=== PATIENT | female | born 1960 | race Caucasian/White ===

== ENCOUNTER 2020-10-22 19:22 | Emergency (ER) | payer OTHER ==
--- OUTSIDE RECORDS SUMMARY | 2020-10-22 19:26 | XMS REPORT | Continuity of Care Document ---
:1960 Author Organization [facility] t Address [address] [place] [address] Care Team Providers Name Role Phone Pj Carrera Attending Clinician Doctor Unassigned, Name Attending Clinician Unavailable Baldomero NUNEZ Attending Clinician Problems This patient has no known problems. Allergies, Adverse Reactions, Alerts This patient has no known allergies or adverse reactions. Medications This patient has no known medications. Procedures This patient has no known procedures. Encounters Start End Encounter Admission Attending Care Care Encounter Source Date/Time Date/Time Type Type Clinicians Facility Department ID 2020-10-21 2020-10-21 Emergency TOBIAS [place] [id number] 18:02:00 22:42:00 Maria G Montes [id number] [place] [id number] [place] [id number] 2020-10-17 2020-10-17 Orders Doctor GONZALEZ [id number] 00:00:00 00:00:00 Only UnassignedTHELMA [id number] [place] [facility] [id number] 2020-10-04 2020-10-04 Office TOBIAS Alexandre [id number] 10:35:07 11:18:27 Visit Nicky Montes [id number] [place] [id number] [facility] [id number] [facility] [address] Results This patient has no known results.
[2020-10-22] MEDS ORDERED: METOCLOPRAMIDE 10 MG/2mL INJ ONE (22:50)
[2020-10-22] MEDS ORDERED: DIPHENHYDRAMINE 50 MG/ML VIAL ONE (22:50)
[2020-10-22] MEDS ORDERED: NA CHLORIDE 0.9% 1,000 ML ONE (22:50)
[2020-10-22] MEDS ORDERED: dexAMETHasone 10 MG/ML VIAL ONE (22:51)
[2020-10-22 23:11] LABS: Absolute Lymphocytes (CBC) 2.4 K/uL (0.7-4.9); Basophils % 0.5 % (0-1.3); Hematocrit 41.9 % (36.0-45.0); Lymphocytes % 26.5 % (15.3-44.8); RBC Red Blood Cell Count 4.74 M/uL (3.86-4.86)
[2020-10-22 23:36] LABS: Albumin 3.9 g/dL (3.4-5.0); Bilirubin Total 0.9 mg/dL (0.2-1.0); Potassium 3.5 mmol/L (3.5-5.1); Protein, Total 7.4 g/dL (6.4-8.2)
[2020-10-22 23:37] LABS: Urine Blood Negative (Negative); Urine Glucose Negative (Negative); Urine Protein Negative (Negative); Urine Specific Gravity 1.025 (1.005-1.030); Urine pH 5.5 (5.0-7.0)
[2020-10-22] MEDS ORDERED: FENTANYL CITR 100 MCG/2 ML ONE (23:47)
[2020-10-23 00:24] LABS: Calcium Oxalate Crystals- Ur FEW (NONE SEEN); Urine Bacteria >50 /HPF (<20); Urine Mucus 1+ /HPF (NONE SEEN); Urine RBC <5 /HPF (NONE SEEN)
--- NOTE | 2020-10-23 01:05 | EDPHYS ---
Physician Documentation [facility] Name: Vanessa Vazquez Age: 59 yrs Sex: Female : 1960 Arrival Date: 10/22/2020 Time: 19:26 Bed 12 Private MD: DANIEL Physician Osei Hamilton HPI: 10/22 22:19 This 59 yrs old Female presents to ER via Ambulatory with complaints of pm1 Headache > 24hrs Old. 22:19 The patient complains of pain to the forehead and right eye. The patient describes the pm1 headache as throbbing. 22:19 Onset: The symptoms/episode began/occurred 3 day(s) ago. Associated signs and symptoms: pm1 Pertinent negatives: fever, dysuria, abdominal pain, flank pain. Severity of symptoms: in the emergency department the pain is unchanged. Headache History: The patient has had previous headaches and this one is more severe than previous episodes. The symptoms are alleviated by nothing. the symptoms are aggravated by walking. The patient has not experienced similar symptoms in the past. The patient has been recently seen by a physician: [facility] two days ago for the same complaint. No improvement in symptoms from treatment in the ER. Here for reevaluation. Historical: - Allergies: 20:04 PENICILLINS; vg1 20:04 Codeine; vg1 - Home Meds: 20:04 duloxetine oral [Active]; Metformin Oral [Active]; Lisinopril Oral [Active]; Dayvigo vg1 oral [Active]; - PMHx: 20:04 Hypertensive disorder; Diabetes mellitus; vg1 - Immunization history:: Adult Immunizations up to date. - Social history:: Smoking status: Patient denies any tobacco usage or history of. ROS: 22:19 Constitutional: Negative for fever, chills, and weight loss, Eyes: Negative for injury, pm1 pain, redness, and discharge, ENT: Negative for injury, pain, and discharge, Neck: Negative for injury, pain, and swelling, Cardiovascular: Negative for chest pain, palpitations, and edema, Respiratory: Negative for shortness of breath, cough, wheezing, and pleuritic chest pain, Abdomen/GI: Negative for abdominal pain, nausea, vomiting, diarrhea, and constipation, Back: Negative for injury and pain, MS/Extremity: Negative for injury and deformity, Skin: Negative for injury, rash, and discoloration. 22:19 Neuro: Positive for headache, Negative for numbness, tingling. Exam: 22:19 Constitutional: This is a well developed, well nourished patient who is awake, alert, pm1 and in no acute distress. Head/Face: Normocephalic, atraumatic. 22:19 Back: No spinal tenderness. No costovertebral tenderness. Full range of motion. Skin: Warm, dry with normal turgor. Normal color with no rashes, no lesions, and no evidence of cellulitis. MS/ Extremity: Pulses equal, no cyanosis. Neurovascular intact. Full, normal range of motion. 22:19 Eyes: Exam is negative for Periorbital structures: appear normal, Extraocular movements: no acute changes, Conjunctiva: no acute changes, no injection. 22:19 Cardiovascular: Rate: normal, Rhythm: regular, Pulses: no pulse deficits are appreciated. 22:19 Respiratory: Exam negative for acute changes, respiratory distress, shortness of breath, the patient does not display signs of respiratory distress. 22:19 Neuro: Exam negative for acute changes, Orientation: is normal, Mentation: is normal, Motor: is normal, moves all fours. Vital Signs: 20:00 BP 162 / 82; Pulse 93; Resp 16; Temp 97.3; Pulse Ox 96% ; Weight 104.33 kg; Height 5 vg1 ft. 8 in. (172.72 cm); Pain 8/10; 23:38 BP 160 / 72; Pulse 81; Resp 12; Pulse Ox 92% on R/A; dh4 10/23 01:11 BP 141 / 79; Pulse 84; Resp 14 S; Pulse Ox 95% on R/A; Pain 8/10; bb 02:00 BP 149 / 81; Pulse 87; Resp 16 S; Pulse Ox 93% on R/A; Pain 5/10; bb 10/22 20:00 Body Mass Index 34.97 (104.33 kg, 172.72 cm) vg1 MDM: 10/22 21:58 Patient medically screened. [facility] 10/23 01:04 Data reviewed: vital signs. Data interpreted: Pulse oximetry: on room air is 96 %. pm1 Interpretation: normal. Counseling: I had a detailed discussion with the patient and/or guardian regarding: the historical points, exam findings, and any diagnostic results supporting the discharge/admit diagnosis, lab results, radiology results, the need for outpatient follow up, to return to the emergency department if symptoms worsen or persist or if there are any questions or concerns that arise at home. 01:18 ED course: OR SCRUB TECH aware reviewed. pm1 10/22 22:02 Order name: CBC with Diff; Complete Time: 23:18 pm1 10/22 22:02 Order name: CMP; Complete Time: 00:24 pm1 10/22 22:07 Order name: Urine Microscopic Only; Complete Time: 00:29 pm1 10/22 22:08 Order name: CT Head Brain wo Cont pm1 10/22 23:37 Order name: Urine Dipstick-Ancillary; Complete Time: 00:24 EDMS 10/23 00:25 Order name: Urine Culture EDNH 10/22 22:02 Order name: IV Saline Lock; Complete Time: 22:55 pm1 10/22 22:07 Order name: Urine Dipstick-Ancillary (obtain specimen); Complete Time: 23:31 pm1 Administered Medications: 10/22 22:40 Drug: Reglan (metoCLOPramide) 10 mg Route: IVP; Site: right antecubital; bb 23:30 Follow up: Response: No adverse reaction bb 22:40 Drug: NS 0.9% 1000 ml Route: IV; Rate: 1000 ml; Site: right antecubital; bb 23:30 Follow up: IV Status: Completed infusion; IV Intake: 1000ml bb 22:43 Drug: Decadron - Dexamethasone 10 mg Route: IVP; Site: right antecubital; bb 23:30 Follow up: Response: No adverse reaction bb 22:44 Drug: Benadryl (diphenhydrAMINE) 12.5 mg Route: IVP; Site: right antecubital; bb 23:31 Follow up: Response: No adverse reaction bb 23:30 Drug: fentaNYL (PF) 25 mcg {Note: RASS 0.} Route: IVP; Site: right antecubital; bb 10/23 00:56 Follow up: Response: No adverse reaction bb 01:10 Drug: morphine 4 mg {Note: RASS -1.} Route: IVP; Site: right antecubital; bb 01:50 Follow up: Response: No adverse reaction; Pain is decreased; RASS: Drowsy (-1) bb 01:10 Drug: Rocephin (cefTRIAXone) 1 grams Route: IV; Rate: calculated rate; Site: right bb antecubital; 01:15 Follow up: IV Status: Completed infusion; IV Intake: 10ml bb Disposition: 07:05 Co-signature as Attending Physician, Osei Hamilton MD I agree with the assessment and douglas plan of care. Disposition Summary: 10/23/20 01:05 Discharge Ordered Location: Home pm1 Problem: new pm1 Symptoms: have improved pm1 Condition: Stable pm1 Diagnosis - UTI/ Urinary tract infection, site not specified pm1 - Headache pm1 Followup: pm1 - With: Emergency Department - When: As needed - Reason: Worsening of condition Followup: pm1 - With: Private Physician - When: 2 - 3 days - Reason: Recheck today's complaints, Continuance of care, Re-evaluation by your physician Discharge Instructions: - Discharge Summary Sheet pm1 - General Headache Without Cause pm1 - Urinary Tract Infection, Adult pm1 Forms: - Medication Reconciliation Form pm1 - Thank You Letter pm1 - Antibiotic Education pm1 - Prescription Opioid Use pm1 Prescriptions: - Bactrim DS 800-160 mg Oral Tablet - take 1 tablet by ORAL route every 12 hours for 10 days; 20 tablet; Refills: 0, pm1 Product Selection Permitted - Fioricet 50-300-40 mg Oral capsule - take 1 capsule by ORAL route every 4 hours As needed as needed; 20 capsule; pm1 Refills: 0, Product Selection Permitted Signatures: Dispatcher [employer] Osei Forte MD MD cha Ballard, Brenda RN RN Dani Dunham NP FIRE EXTINGUISHER SPRINKLER INSPECTOR [email or web address] Sarah Aj RN RN vg1 Corrections: (The following items were deleted from the chart) 10/22 20:06 20:04 Allergies: No Known Allergies; vg1 vg1
--- NOTE | 2020-10-23 01:05 | ER ---
Nurse's Notes [facility] Name: Vanessa Vazquez Age: 59 yrs Sex: Female : 1960 Arrival Date: 10/22/2020 Time: 19:26 Bed 12 Private MD: Diagnosis: UTI/ Urinary tract infection, site not specified;Headache Presentation: 10/22 20:00 Chief complaint: Patient states: " A week ago I had a kidney infection, I completed vg1 antibiotics on Wednesday10/20/20 and I had a sudden headache that hasnt gone away. I've taken Tylenol but still hasnt subsided. I was seen in [place] ED last night and labs were fine and CT was fine and they said I may be dehydrated but I think its something else.". Coronavirus screen: Client denies travel out of the [place] in the last 14 days. Ebola Screen: Patient negative for fever greater than or equal to 101.5 degrees Fahrenheit, and additional compatible Ebola Virus Disease symptoms. Initial Sepsis Screen: Does the patient meet any 2 criteria? No. Patient's initial sepsis screen is negative. Does the patient have a suspected source of infection? No. Patient's initial sepsis screen is negative. Risk Assessment: Do you want to hurt yourself or someone else? Patient reports no desire to harm self or others. Onset of symptoms was October 20, 2020. 20:00 Method Of Arrival: Ambulatory vg1 20:00 Acuity: WAYNE 3 vg1 Triage Assessment: 20:04 Headache History: The patient has had previous headaches and this one is different than vg1 previous episodes, and this one is more severe than previous episodes. General: Appears in no apparent distress. comfortable, Behavior is calm, cooperative. Pain: Complains of pain in head Pain currently is 8 out of 10 on a pain scale. Pain began 2-3 days ago. Also complains of photophobia. Neuro: Level of Consciousness is awake, alert, obeys commands, Oriented to person, place, time, situation. Historical: - Allergies: 20:04 PENICILLINS; vg1 20:04 Codeine; vg1 - Home Meds: 20:04 duloxetine oral [Active]; Metformin Oral [Active]; Lisinopril Oral [Active]; Dayvigo vg1 oral [Active]; - PMHx: 20:04 Hypertensive disorder; Diabetes mellitus; vg1 - Immunization history:: Adult Immunizations up to date. - Social history:: Smoking status: Patient denies any tobacco usage or history of. Screenin:45 Abuse screen: Denies threats or abuse. Nutritional screening: No deficits noted. bb Tuberculosis screening: No symptoms or risk factors identified. Fall Risk None identified. Assessment: 21:45 General: Appears in no apparent distress. uncomfortable. Pain: Complains of pain in bb head. Neuro: Level of Consciousness is awake, alert, obeys commands, Oriented to person, place, time, situation. Cardiovascular: Capillary refill < 3 seconds Patient's skin is warm and dry. Respiratory: Respiratory effort is even, unlabored, Respiratory pattern is regular. GI: No signs and/or symptoms were reported involving the gastrointestinal system. Derm: Skin is pink, warm \\T\\ dry. Musculoskeletal: Circulation, motion, and sensation intact. 22:55 Reassessment: Patient is alert, oriented x 3, equal unlabored respirations, skin bb warm/dry/pink. pt to CT scan via wheelchair accompanied by diesel lube tech. 23:31 Reassessment: Patient is alert, oriented x 3, equal unlabored respirations, skin bb warm/dry/pink. IV site, intact with fluids infusing awaiting diagnostic results, family at bedside. 10/23 01:11 Reassessment: pt states Fentanyl took the edge off of her headache but the pain is bb still 8/10 pt medicated per JUN. 01:58 Reassessment: Patient is alert, oriented x 3, equal unlabored respirations, skin bb warm/dry/pink. pt states her headache is a little better pt verbalized understanding of and agrees to plan of care discharge instructions given pt ambulated with steady gait to exit accompanied by spouse. Vital Signs: 10/22 20:00 BP 162 / 82; Pulse 93; Resp 16; Temp 97.3; Pulse Ox 96% ; Weight 104.33 kg; Height 5 vg1 ft. 8 in. (172.72 cm); Pain 8/10; 23:38 BP 160 / 72; Pulse 81; Resp 12; Pulse Ox 92% on R/A; dh4 10/23 01:11 BP 141 / 79; Pulse 84; Resp 14 S; Pulse Ox 95% on R/A; Pain 8/10; bb 02:00 BP 149 / 81; Pulse 87; Resp 16 S; Pulse Ox 93% on R/A; Pain 5/10; bb 10/22 20:00 Body Mass Index 34.97 (104.33 kg, 172.72 cm) vg1 ED Course: 10/22 19:26 Patient arrived in ED. wm 20:04 Triage completed. vg1 20:04 Arm band placed on Patient placed in waiting room, Patient notified of wait time. vg1 21:45 Patient has correct armband on for positive identification. Adult w/ patient. bb 21:51 Dani Vasquez, HAILEY is PHCP. pm1 21:51 Osei Hamilton MD is Attending Physician. pm1 22:18 Meena León RN is Primary Nurse. bb 22:40 Initial lab(s) drawn, by me, sent to lab. Inserted saline lock: 20 gauge in right bb antecubital area, using aseptic technique. Blood collected. 22:56 CT Head Brain wo Cont In Process Unspecified. EDMS 23:31 Urine collected: clean catch specimen, clear. bb 10/23 01:57 No provider procedures requiring assistance completed. IV discontinued, intact, bb bleeding controlled, No redness/swelling at site. Pressure dressing applied. Administered Medications: 10/22 22:40 Drug: Reglan (metoCLOPramide) 10 mg Route: IVP; Site: right antecubital; bb 23:30 Follow up: Response: No adverse reaction bb 22:40 Drug: NS 0.9% 1000 ml Route: IV; Rate: 1000 ml; Site: right antecubital; bb 23:30 Follow up: IV Status: Completed infusion; IV Intake: 1000ml bb 22:43 Drug: Decadron - Dexamethasone 10 mg Route: IVP; Site: right antecubital; bb 23:30 Follow up: Response: No adverse reaction bb 22:44 Drug: Benadryl (diphenhydrAMINE) 12.5 mg Route: IVP; Site: right antecubital; bb 23:31 Follow up: Response: No adverse reaction bb 23:30 Drug: fentaNYL (PF) 25 mcg {Note: RASS 0.} Route: IVP; Site: right antecubital; bb 10/23 00:56 Follow up: Response: No adverse reaction bb 01:10 Drug: morphine 4 mg {Note: RASS -1.} Route: IVP; Site: right antecubital; bb 01:50 Follow up: Response: No adverse reaction; Pain is decreased; RASS: Drowsy (-1) bb 01:10 Drug: Rocephin (cefTRIAXone) 1 grams Route: IV; Rate: calculated rate; Site: right bb antecubital; 01:15 Follow up: IV Status: Completed infusion; IV Intake: 10ml bb Intake: 10/22 23:30 IV: 1000ml; Total: 1000ml. bb 10/23 01:15 IV: 10ml; Total: 1010ml. bb Outcome: 01:05 Discharge ordered by . pm1 01:58 Discharged to home ambulatory, with family. bb 01:58 Condition: stable 01:58 Discharge instructions given to patient, Instructed on discharge instructions, follow up and referral plans. medication usage, Demonstrated understanding of instructions, follow-up care, medications, Prescriptions given X 2. 02:00 Patient left the ED. bb Signatures: Dispatcher [employer] EDMeena Arredondo RN RN bb Dani Vasquez, CLOTH HANDLER CLOTH HANDLER pm1 Junior Stern 4 Sarah Aj RN RN vg1 Leonora Arzola Corrections: (The following items were deleted from the chart) 10/22 20:06 20:04 Allergies: No Known Allergies; vg1 vg1
[2020-10-23] MEDS ORDERED: CEFTRIAXONE/SWI 1gm 1 GM/10 ML SYR ONE (01:21)
[2020-10-23] MEDS ORDERED: MORPHINE 4 MG/ML SYR ONE (01:21)
[2020-10-23 02:08] VITALS: TEMP 97.3
[2020-10-23 02:13] VITALS: BP 149/81; O2SAT 93
--- NOTE | 2020-10-23 21:36 | RAD REPORT ---
EXAM DESCRIPTION: CT - Head Brain Wo Cont - 10/23/2020 6:54 am CLINICAL HISTORY: Headache, fever, chills, hypertension COMPARISON: None. TECHNIQUE: Head/brain axial images acquired without contrast. Coronal and sagittal reformats created . Exam performed according to departmental dose-optimization program which includes automated exposur e control, adjustment of mA and/or kV according to patient size, and/or use of iterative reconstructi on technique. FINDINGS: No midline shift, mass effect, intracranial hemorrhage, or hydrocephalus. Brain parenchyma unremarkable. Partial Empty Sella (likely normal variant). Paranasal sinuses clear. Mastoid air cells clear. No skull fracture or significant skull lesion. IMPRESSION: Unremarkable CT head/brain without contrast. Electronically signed by: Darek Rose MD 10/22/2020 11:23 PM CDT Due to temporary technical issues with the PACS/Fluency reporting system, reports are being signed by the in house radiologists without review as a courtesy to insure prompt reporting. The interpreting radiologist is fully responsible for the content of the report.
== END 2020-10-23 02:00 | disposition home or self-care (01) ==
LOC: ER 19:22
DX: N39.0 Urinary tract infection, site not specified (principal); I10 Essential (primary) hypertension; E11.9 Type 2 diabetes mellitus without complications; Z88.0 Allergy status to penicillin; Z88.5 Allergy status to narcotic agent
CPT/HCPCS: 96361; 87088; 85025; 87086; 36415; 80053; 70450; 96375; 96374; 99284; J2765; J1200; J3010; J1100; J0696; J7030; 81003; 81015